=== PATIENT | female | born 1990 | race Caucasian/White ===

== ENCOUNTER 2016-04-30 17:52 | Emergency (ER) | payer OTHER ==
[~2016-04-30] VITALS: Ht 154.9 cm; Wt 49.9 kg
[2016-04-30] MEDS: NORCO, ANEXSIA 5/325MG TABLET (HYDROcodone/ACETAMINOPHEN) PO ONE (20:08)
[2016-04-30] MEDS: ONDANSETRON 4 MG ORAL DISINTEGRATING TAB (S0181) PO ONE (20:09)
[2016-04-30] MEDS: METHOCARBAMOL 500 MG TAB PO ONE (20:09)
--- NOTE | 2016-04-30 20:35 | REP ---
Clinical: Trauma/injury . Comparison: None . Findings: The ventricles, sulci, and cisterns are normal in position and appearance. Mei-white differentiation is maintained. No acute intracranial hemorrhage, mass/mass effect, pathology or trauma/injury. No evidence for acute infarction. No extra-axial fluid collection. Calvarium is intact. Paranasal sinuses and mastoid air cells are clear. Impression: Normal noncontrast head CT. No evidence for acute intracranial pathology or trauma/injury. Signed by Ankit Mccrary MD 04/30/2016 08:26 P
--- NOTE | 2016-04-30 20:37 | REP ---
Clinical: Trauma/injury . Technique: Axial noncontrast images from the skull base to the thoracic inlet with coronal and sagittal re-formations Findings: Normal alignment and lordosis is maintained. Cervical vertebral bodies including transverse processes and spinous processes are intact and there is no evidence for acute fracture / compression injury or subluxation. Spinal canal is patent. Posterior elements are intact. Paravertebral soft tissues are normal. Impression: Normal noncontrast cervical spine CT. No evidence for acute pathology or trauma/injury. Signed by Ankit Mccrary MD 04/30/2016 08:28 P
[2016-04-30] MEDS ORDERED: NORCOTAB PO (21:23)
[2016-04-30] MEDS ORDERED: MOTR200T44 PO (21:23)
[2016-04-30] MEDS ORDERED: ROBA500T PO (21:23)
[2016-04-30 21:36] VITALS: BP 118/61
== END 2016-04-30 21:45 | disposition home or self-care (01) ==
LOC: M ED 19:09
DX: S06.0X0A Concussion without loss of consciousness, initial encounter (principal); W00.0XXA Fall on same level due to ice and snow, initial encounter; Y92.019 Unspecified place in single-family (private) house as the place of occurrence of the external cause; Y93.01 Activity, walking, marching and hiking; Y99.8 Other external cause status; M54.2 Cervicalgia